=== PATIENT | female | born 1960 | race African-American/Black ===

== ENCOUNTER 2023-05-26 09:56 | Outpatient (CLI) | payer OTHER, SELFPAY ==
--- NOTE | ~2023-05-26 | CT_ITS ---
EXAMINATION: CT sinus wo con DATE: 05/26/2023 10:18 INDICATION: Deviated nasal septum TECHNIQUE: Computed tomography (CT) of the paranasal sinuses was performed without contrast. Iterativ e reconstruction technique was employed. Exam dose: 302.19 mGy-cm total exam DLP. COMPARISON: None FINDINGS: There is leftward deviation of the nasal septum. Intralamellar cell of the middle turbinates, more prominent on the left. There is asymmetric soft tis ravi swelling of the right middle and inferior nasal turbinates otherwise. The ostiomeatal units are patent. The paranasal sinuses and mastoid air cells are normally developed and aerated. IMPRESSION: Leftward deviation of nasal septum Asymmetric soft tissues swelling of right nasal turbinates Intralamellar cell of the middle nasal turbinates, more prominent on the left Patent paranasal sinuses, mastoid air cells and ostiomeatal units Reviewed, dictated and finalized at [facility]. Reviewed, dictated and finalized at location L. OL AGE PROGRAM TEACHER
--- NOTE | ~2023-05-26 | XR_ITS ---
Right Knee Technique: AP, lateral, and sunrise views were obtained. Clinical History: Pain Findings: No fracture or dislocation is seen. Osseous alignment is anatomic. There is mild patellar s purring. Soft tissues are unremarkable. No joint effusion is seen. Impression: Mild patellar spurring. Reviewed, dictated and finalized at location . LE PRESS OPERATOR Impression: Mild patellar spurring.
== END 2023-05-26 09:57 | disposition home or self-care (01) ==
PROVIDERS: Visit Provider Nurse Practitioner Family
DX: J34.2 Deviated nasal septum (principal); M25.561 Pain in right knee
CPT/HCPCS: 70486; 73562

== ENCOUNTER 2023-06-18 08:23 | Outpatient (CLI) | payer OTHER, SELFPAY ==
[2023-07-02 18:30] VITALS: BMI 52.3
--- NOTE | 2023-07-02 18:30 | WPDHOMESLEEP ---
Sleep Study - Home Unattended Date of Study: 06/18/23 Ordering Provider: Chavez Gregorio, CONSTRUCTION JOB COST ESTIMATOR Interpreting Provider: Paris De León, DO Home Sleep Study Type: Watch PAT Height: 1.61 m Weight: 136.078 kg Body Mass Index: 52.3 Neck Circumference (inches): 16 [place]: 7 Reason for Sleep Study Previously diagnosed with DAREN on CPAP. Quit using CPAP during COVID and now having daytime hypersomnia Sleep History The patient is a 62-year-old female with hypertension, asthma, nocturia and previously diagnosed sleep apnea that had a sleep study ordered by her ENT physician to restart her on CPAP therapy. She frequently awakens from sleep short of breath. She denies awakening at night with heartburn, belching or cough. She constantly snores and it is frequently loud enough that others complain. She occasionally has trouble sleeping when she has a cold. She rarely wakes up gasping for air throughout the night. She rarely has breathing problems at night observed by herself or others. She rarely sweats excessively at night. She rarely has heart palpitations or irregular heartbeats during the night. She occasionally falls asleep during the day but never while driving. She rarely experiences loss of muscle tone when extremely emotional. She denies having trouble at school or work due to sleepiness. She denies sleep paralysis and hypnagogic/ hypnopompic hallucinations. She denies feeling afraid of going to sleep. She denies having nightmares. She denies remembering her dreams. She occasionally has thoughts racing through her mind. She denies feeling sad, depressed or anxious. He rarely has muscular tension. She denies noticing parts of her body jerk. He denies kicking during the night. She denies having crawling and aching feelings in her legs but occasionally has leg pain during the night. She denies grinding her teeth during sleep and denies awakening with morning jaw pain. She denies being bothered by pain during the day and denies being awakened by pain during the night. She denies waking up feeling stiff in the morning. He rarely wakes up with sore or achy muscles. She rarely wakes up with pain in the neck, spine and other joints. She goes to bed at midnight on weekdays and at 1:00 a.m. on the weekends. It takes her 30 minutes to fall asleep. She wakes up 3 times throughout the night to use the restroom and it takes her 15 minutes to fall back asleep. She wakes up at 6:00 a.m. on weekdays and at 5:00 a.m. on the weekends. She typically gets 5 hours of sleep per night. She will stay in bed for 1 hour after waking up in the morning. She currently lives with her male partner and 3 children. She denies consuming any caffeinated beverages within 2 hours of bedtime. She denies engaging in physical exercise before bedtime. She will watch television before falling asleep. She denies taking naps in the afternoon or the evening. She consumes caffeinated soda during the day. She denies tobacco, alcohol and recreational drug use. Sleep Procedure The sleep study was completed using DisplayLinkT a technically adequate device with seven channels: peripheral arterial tone, actigraphy, body position, snore, respiratory movement, pulse oximetry, sleep staging, and heart rate. Prior to using the device, the patient received verbal and written instructions for its application and was provided with the help desk phone number for additional telephonic instruction with 24-hour availability of qualified personnel to answer questions.? The study was scored using CMS guidelines.?? Sleep Architecture The total recording time is 6 hrs, 56 min. The total sleep time is 4 hrs, 20 min. Sleep latency is 19 minutes. REM latency is 33 minutes. The patient had 15 episodes of waking. Sleep architecture shows 12.5% deep sleep, 74.1% light sleep, and (as % Total Sleep Time) showed NREM (Light 74.1%; Deep 12.5%), and a 13.4% stage REM. The patient spent 98.0% of total sleep t
== END 2023-06-22 07:30 | disposition home or self-care (01) ==
LOC: ANHCSM 08:25
PROVIDERS: Visit Provider Nurse Practitioner Family
DX: G47.33 Obstructive sleep apnea (adult) (pediatric) (principal)
CPT/HCPCS: 95800

== ENCOUNTER 2023-07-10 09:24 | Outpatient (CLI) | payer OTHER, SELFPAY ==
--- NOTE | 2023-07-20 22:24 | WPDSLEEPSTUD ---
Sleep Study Date of Study: 07/10/23 Ordering Provider: Chavez Gregorio, PHOTOLETTERING MACHINE OPERATOR Interpreting Physician: Lisset Velez MD Sleep Study Type: CPAP Titration Height: 1.6 m Weight: 136.078 kg Body Mass Index: 53.1 Neck Circumference (inches): 16 [place]: 7 Reason for Sleep Study *Home sleep test using WatchPat 06/18/23 with AHI 9.3, AHI 43 in REM, lowest saturation 83%; patient returns for CPAP titration Sleep History Rena Forbes is a 62-year-old female who underwent a home sleep test 06/18/2023 to restart CPAP therapy. ? She frequently awakens from sleep short of breath.? She denies awakening at night with heartburn, belching or coughing.? She constantly snores and it is frequently loud enough that others complain.? She occasionally has trouble sleeping when she has a cold.? She rarely wakes up gasping for air at night.? She rarely has breathing problems at night observed by others.? She rarely sweats excessively at night.? She rarely has heart palpitations or irregular heartbeats during the night.? She occasionally falls asleep during the day but never while driving.? She rarely experiences loss of muscle tone when extremely emotional.? She denies having daytime difficulties due to sleepiness.? She denies feeling paralyzed on falling asleep or upon awakening. She does not have vivid dreamlike scenes upon falling asleep or upon awakening.? She denies feeling afraid of going to sleep.? She denies having nightmares.? She does not have dream recall. She occasionally has thoughts racing through her mind.? She denies feeling sad, depressed or anxious.? He rarely has muscular tension.? She denies noticing parts of her body jerk.? She denies kicking during the night.? She denies having crawling and aching feelings in her legs but occasionally has leg pain during the night.? She denies grinding her teeth during sleep and denies awakening with morning jaw pain.? She denies being bothered by pain during the day and denies being awakened by pain during the night.? She denies waking up feeling stiff in the morning.? She rarely wakes up with sore or achy muscles.? She rarely wakes up with pain in the neck, spine and other joints.? Normal bedtime and wake time are variable. She sometimes goes to bed at midnight on weekdays and at 1:00 a.m. on the weekends.? It takes her 30 minutes to fall asleep.? She wakes up 3 times throughout the night to use the restroom, taking her 15 minutes to return to sleep.? She wakes up at 6:00 a.m. on weekdays and at 5:00 a.m. on the weekends.? She typically gets 5 hours of sleep per night.? She will stay in bed for 1 hour after waking up in the morning.? She currently lives with her male partner and 3 children.? She denies consuming any caffeinated beverages within 2 hours of bedtime.? She denies engaging in physical exercise before bedtime.? She denies taking naps in the afternoon or the evening.? She consumes caffeinated soda during the day.? She denies tobacco, alcohol and recreational drug use. [facility] Past Medical History Medical History (Updated 07/20/23 @ 22:53 by Lisset Velez MD) Asthma Chronic rhinitis Jaye bullosa Hypertension Hypertrophy of nasal turbinates Nasal septal deviation DAREN (obstructive sleep apnea) Social History Social History (Updated 07/20/23 @ 22:28 by Lisset Velez MD) Smoking status: Never smoker Medications Medications: Metoprolol succinate Flonase Amlodipine besylate Hydrochlorothiazide Montelukast Flovent Losartan potassium Albuterol Ipratropium bromide 0.03% nasal spray, 2 squirts b.i.d. Sleep Procedure A full CPAP polysomnogram using the Spacebik[employer] multi-channel system recorded the standard physiologic parameters including EEG, EOG, submentalis EMG, anterior tibialis EMG, EKG, body position, nasal and oral airflow using nasal pressure sensor and thermistor. Respiratory parameters of chest and abdominal movements were recorded with Respiratory Inductance Plethysmograph
[2023-07-20 22:31] VITALS: BMI 53.1
== END 2023-07-11 06:46 | disposition home or self-care (01) ==
LOC: ANHCSM 09:25
PROVIDERS: Visit Provider Nurse Practitioner Family
DX: G47.33 Obstructive sleep apnea (adult) (pediatric) (principal)
CPT/HCPCS: 95811

== ENCOUNTER 2023-10-22 12:26 | Outpatient (CLI) | payer OTHER, SELFPAY ==
--- NOTE | 2023-10-22 | ECG_ITS ---
Test Date: 2023-10-22 13:35:42 Measurements Intervals [place] Rate: 77 P: 48 [place]: 188 QRS: 31 QRSD: 81 T: 58 QT: 370 QTc: 420 Interpretive Statements SINUS RHYTHM POSSIBLE LEFT ATRIAL ENLARGEMENT BASELINE ARTIFACT- II, III, AVR, AVF, V1 BORDERLINE ECG No previous ECG available for comparison Electronically Signed On 10-22-2023 13:36:49 CDT by Derek Stevens D.O.
--- NOTE | ~2023-10-22 | XR_ITS ---
EXAMINATION: XR chest 2V 10/22/2023 13:26 INDICATION: General medical examination PROCEDURE: 2 view chest COMPARISON: No prior studies for comparison. FINDINGS: The lungs are clear. The cardiomediastinal silhouette is within normal limits. There are no pleural effusions. There is no pneumothorax suspected. IMPRESSION: 1: NO ACUTE CARDIOPULMONARY DISEASE. Reviewed, dictated and finalized at location B.
== END 2023-10-22 12:27 | disposition home or self-care (01) ==
DX: Z00.01 Encounter for general adult medical examination with abnormal findings (principal); R06.02 Shortness of breath; R94.31 Abnormal electrocardiogram [ECG] [EKG]
CPT/HCPCS: 71046; 93005

== ENCOUNTER 2023-11-20 14:36 | Outpatient (CLI) | payer OTHER, SELFPAY ==
--- NOTE | ~2023-11-20 | CT_ITS ---
CT sinus wo con Ordering provider: Chavez Gregorio, CASH ACCOUNTING CLERK History: . chronic rhinitis . Comparison: None. Technique: Thin slice Scans CT of the paranasal sinuses was performed with coronal and sagittal refor matted images. No IV contrast. . Automated exposure control and iterative reconstruction technique w ere employed. The dose-length product was 302.19 mGy-cm. Findings: NASAL SEPTUM: Nasal septal deviation seen inferiorly. OSTEOMEATAL UNITS: Bilaterally patent. NASAL TURBINATES AND NASOPHARYNX: Small asiya bullosa seen in the left middle turbinate. PARANASAL SINUSES: Mucosal thickening in the right frontal sinus medially. VISUALIZED MASTOIDS: Normal as visualized. BONES: Normal. SUPERFICIAL SOFT TISSUES/VISUALIZED BRAIN PARENCHYMA: Normal. IMPRESSION: Mild left nasal configuration. Minimal right frontal sinus disease. Reviewed, dictated and finalized at location A.
== END 2023-11-20 14:37 | disposition home or self-care (01) ==
LOC: ANHIMG 14:40
PROVIDERS: Visit Provider Nurse Practitioner Family
DX: J31.0 Chronic rhinitis (principal)
CPT/HCPCS: 70486